=== PATIENT | female | born 1980 | race Native Hawaiian/Other Pacific Islander ===

== ENCOUNTER 2018-10-02 12:19 | Emergency (ER) | payer OTHER ==
[~2018-10-02] VITALS: Ht 167.6 cm; Wt 84.8 kg
[2018-10-02 12:24] VITALS: BP 117/76; TEMP 97.9
== END 2018-10-02 12:55 | disposition home or self-care (01) ==
LOC: ED 12:19
DX: L03.115 Cellulitis of right lower limb (principal); L02.415 Cutaneous abscess of right lower limb
CPT/HCPCS: 99281

== ENCOUNTER 2019-05-17 14:25 | Outpatient (CLI) | payer OTHER | END 2019-05-17 22:47 | disposition home or self-care (01) | LOC: RAD 14:25 | DX: M54.16 Radiculopathy, lumbar region (principal) ==

== ENCOUNTER 2020-09-03 12:14 | Emergency (ER) | payer OTHER ==
[2020-09-10 14:29] LABS: PLATELET COUNT 328 K/uL (152-353)
[2020-09-10 14:31] LABS: POTASSIUM 3.3 mmol/L (3.6-5.2)
== END 2020-09-03 16:36 | disposition home or self-care (01) ==
LOC: ED 12:14
PROVIDERS: Family Medicine
DX: R10.11 Right upper quadrant pain (principal); K80.80 Other cholelithiasis without obstruction
CPT/HCPCS: 80053; 85027; 96372; 99283; J1885; J2405